=== PATIENT | male | born 1990 | race Caucasian/White ===

== ENCOUNTER 2021-08-28 14:32 | Inpatient (IN) | payer OTHER ==
[2021-08-28] MEDS ORDERED: ACETAMINOPHEN 325 MG TABLET (FP) PO PRN (15:26)
[2021-08-28] MEDS ORDERED: MAGNESIUM CITRATE 300 ML BOTTLE PO PRN (15:26)
[2021-08-28] MEDS ORDERED: MAGNESIUM HYDROX 2400MG/30ML ORAL SUSPENSION 30 ML CUP PO PRN (15:26)
[2021-08-28] MEDS ORDERED: LOPERAMIDE HCL 2 MG CAPSULE PO PRN (15:26)
[2021-08-28] MEDS ORDERED: MAG HYDROX/AL HYDROX/SIMETH 30 ML UNIT-DOSE CUP PO PRN (15:26)
[2021-08-28] MEDS ORDERED: NICOTINE 14 MG/24 HOURS TOPICAL PATCH TD SCH (15:26)
[2021-08-28] MEDS ORDERED: guaiFENesin 200 MG/10 ML 10 ML UNIT-DOSE CUPS PO PRN (15:26)
[2021-08-28] MEDS ORDERED: P-EPHED 60MG/TRIPROLIDI 2.5MG TABLET PO PRN (15:26)
[2021-08-28 15:45] VITALS: BMI 25.5
[2021-08-28] MEDS: hydrOXYzine PAMOATE 25 MG CAPSULE (FP) PO SCH (18:49)
[2021-08-28] MEDS: NICOTINE 21 MG/24 HOURS TOPICAL PATCH TD SCH (18:52)
[2021-08-28] MEDS ORDERED: DIVALPROEX SODIUM 500 MG TABLET E.C. ONE (21:30)
[2021-08-29] MEDS: THIAMINE HCL 100 MG TABLET (FP) PO SCH ×2 (00:26→21:49)
[2021-08-29] MEDS: DIVALPROEX SODIUM 500 MG TABLET E.C. PO SCH ×2 (00:26→21:49)
[2021-08-29] MEDS: hydrOXYzine PAMOATE 25 MG CAPSULE (FP) PO SCH ×3 (00:26→10:07)
[2021-08-29] MEDS: MELATONIN 5 MG TABLETS PO SCH ×2 (00:26→21:49)
[2021-08-29] MEDS ORDERED: methaDONE HCL 10 MG TABLET PO SCH (07:30)
[2021-08-29] MEDS ORDERED: methaDONE HCL 10 MG TABLET ONE (07:48)
[2021-08-29] MEDS ORDERED: methaDONE HCL 40 MG DISPERSABLE TABLET ONE (07:49)
[2021-08-29] MEDS ORDERED: PT OWN MED DRAWER 7, Y5N ONE ×2 (08:43→10:22)
[2021-08-29] MEDS ORDERED: ALBUTEROL SO4 HFA INHALER IH PRN (08:52)
[2021-08-29] MEDS ORDERED: methaDONE HCL 40 MG DISPERSABLE TABLET PO SCH (10:00)
[2021-08-29] MEDS: clonazePAM 0.5 MG ODT TABLETS SL SCH ×2 (10:06→21:48)
[2021-08-29] MEDS: PRENATAL VITAMINS W/ FOLIC ACID TABLET (FP) PO SCH (10:06)
[2021-08-29] MEDS: NICOTINE 21 MG/24 HOURS TOPICAL PATCH TD SCH (10:07)
[2021-08-29] MEDS: PATIENT'S OWN MEDICATION (NON-FORMULARY) (Clonazepam [Klonopin -] 0.5 MG Tablet) PO SCH ×3 (10:08→12:05)
[2021-08-29 11:41] LABS: HEMATOCRIT 40.3 % (35.4-49); HEMOGLOBIN 13.6 GM/dL (11.7-16.9); MCH 30.4 pg (25.7-33.7); MCHC 33.7 g/dl (32.0-35.9); MEAN PLT VOLUME 8.1 fl (7.5-11.1); PLATELET COUNT 306 10^3/uL (134-434); RBC 4.48 M/mm3 (4.00-5.60); RDW 13.4 % (11.9-15.9); WHITE BLOOD COUNT 8.5 K/mm3 (4.0-10.0)
[2021-08-29 11:46] LABS: CALCIUM 8.7 mg/dL (8.5-10.1)
[2021-08-29 11:47] LABS: ALBUMIN 3.2 g/dl (3.4-5.0); BLOOD UREA NITROGEN 6.1 mg/dL (7-18)
[2021-08-29 11:51] LABS: BILIRUBIN,TOTAL 0.9 mg/dL (0.2-1)
[2021-08-29 11:52] LABS: TOT PROT 6.4 g/dl (6.4-8.2)
[2021-08-29 11:54] LABS: CREATININE 0.7 mg/dL (0.55-1.3)
[2021-08-29 12:03] LABS: SYPHILIS W/ RPR CONF NON-REACTIVE (NONREACTIVE)
[2021-08-29] MEDS ORDERED: hydrOXYzine PAMOATE 25 MG CAPSULE (FP) PO PRN (12:04)
[2021-08-29 12:45] LABS: HIV INTERPRETATION NEGATIVE (NEGATIVE)
[2021-08-29] MEDS ORDERED: FLU VACC QS2021-22(6MOS UP)/PF 60 MCG/0.5 ML SYRINGE IM ONE (13:00)
[2021-08-29 15:07] LABS: EPI CELLS 1 /uL (0-25.1); HYALINE CASTS 0 /uL (0-3.1); PH,URINE 5.5 (5.0-8.0); URINE APPEARANCE CLEAR; URINE BACTERIA 7 /uL (0-1359); URINE BILIRUBIN NEGATIVE (NEGATIVE); URINE COLOR YELLOW; URINE GLUCOSE (UA) NEGATIVE (NEGATIVE); URINE KETONE TRACE (NEGATIVE); URINE LEUK ESTERASE TRACE (NEGATIVE); URINE NITRITE NEGATIVE (NEGATIVE); URINE PROTEIN NEGATIVE (NEGATIVE); URINE RBC 0 /uL (0-23.9); URINE WBC 6 /uL (0-25.8)
[2021-08-29] MEDS: IBUPROFEN 400 MG TABLET (FP) PO PRN (21:50)
[2021-08-30] MEDS ORDERED: methaDONE HCL 10 MG TABLET ONE (04:13)
[2021-08-30] MEDS ORDERED: methaDONE HCL 40 MG DISPERSABLE TABLET ONE (04:14)
[2021-08-30] MEDS ORDERED: PT OWN MED DRAWER 7, Y5N ONE (07:42)
[2021-08-30] MEDS: PRENATAL VITAMINS W/ FOLIC ACID TABLET (FP) PO SCH (09:25)
[2021-08-30] MEDS: NICOTINE 21 MG/24 HOURS TOPICAL PATCH TD SCH (09:25)
[2021-08-30] MEDS: clonazePAM 0.5 MG ODT TABLETS SL SCH ×2 (09:25→21:40)
[2021-08-30] MEDS: IBUPROFEN 400 MG TABLET (FP) PO PRN (09:26)
[2021-08-30] MEDS: NICOTINE POLACRILEX 2 MG GUM BUC PRN ×2 (09:29→21:47)
[2021-08-30] MEDS: THIAMINE HCL 100 MG TABLET (FP) PO SCH (21:40)
[2021-08-30] MEDS: MELATONIN 5 MG TABLETS PO SCH (21:40)
[2021-08-30] MEDS: DIVALPROEX SODIUM 500 MG TABLET E.C. PO SCH (21:40)
[2021-08-31] MEDS ORDERED: methaDONE HCL 10 MG TABLET ONE (03:31)
[2021-08-31] MEDS ORDERED: methaDONE HCL 40 MG DISPERSABLE TABLET ONE (03:31)
[2021-08-31] MEDS: clonazePAM 0.5 MG ODT TABLETS SL SCH ×2 (09:47→21:32)
[2021-08-31] MEDS: NICOTINE 21 MG/24 HOURS TOPICAL PATCH TD SCH (09:47)
[2021-08-31] MEDS: PRENATAL VITAMINS W/ FOLIC ACID TABLET (FP) PO SCH (09:48)
[2021-08-31] MEDS: NICOTINE POLACRILEX 2 MG GUM BUC PRN (09:48)
[2021-08-31] MEDS: MELATONIN 5 MG TABLETS PO SCH (21:32)
[2021-08-31] MEDS: THIAMINE HCL 100 MG TABLET (FP) PO SCH (21:32)
[2021-08-31] MEDS: DIVALPROEX SODIUM 500 MG TABLET E.C. PO SCH (21:32)
[2021-09-01] MEDS ORDERED: methaDONE HCL 40 MG DISPERSABLE TABLET ONE (03:56)
[2021-09-01] MEDS ORDERED: methaDONE HCL 10 MG TABLET ONE (03:56)
[2021-09-01] MEDS: PRENATAL VITAMINS W/ FOLIC ACID TABLET (FP) PO SCH (09:40)
[2021-09-01] MEDS: NICOTINE POLACRILEX 2 MG GUM BUC PRN (09:40)
[2021-09-01] MEDS: NICOTINE 21 MG/24 HOURS TOPICAL PATCH TD SCH (09:40)
[2021-09-01] MEDS: clonazePAM 0.5 MG ODT TABLETS SL SCH ×2 (09:40→21:05)
[2021-09-01] MEDS ORDERED: PT OWN MED DRAWER 7, Y5N ONE (09:48)
[2021-09-01] MEDS: DIVALPROEX SODIUM 500 MG TABLET E.C. PO SCH (21:05)
[2021-09-01] MEDS: THIAMINE HCL 100 MG TABLET (FP) PO SCH (21:05)
[2021-09-01] MEDS: MELATONIN 5 MG TABLETS PO SCH (21:05)
[2021-09-02] MEDS ORDERED: methaDONE HCL 10 MG TABLET ONE (03:54)
[2021-09-02] MEDS ORDERED: methaDONE HCL 40 MG DISPERSABLE TABLET ONE (03:54)
[2021-09-02] MEDS: NICOTINE 21 MG/24 HOURS TOPICAL PATCH TD SCH (09:34)
[2021-09-02] MEDS: clonazePAM 0.5 MG ODT TABLETS SL SCH ×2 (09:35→21:24)
[2021-09-02] MEDS: PRENATAL VITAMINS W/ FOLIC ACID TABLET (FP) PO SCH (09:35)
[2021-09-02] MEDS: NICOTINE 10 MG CARTRIDGE (INHALER) IH PRN ×2 (09:36→21:25)
[2021-09-02] MEDS ORDERED: PT OWN MED DRAWER 7, Y5N ONE ×2 (10:03→11:26)
[2021-09-02] MEDS: MELATONIN 5 MG TABLETS PO SCH (21:24)
[2021-09-02] MEDS: THIAMINE HCL 100 MG TABLET (FP) PO SCH (21:24)
[2021-09-02] MEDS: DIVALPROEX SODIUM 500 MG TABLET E.C. PO SCH (21:24)
[2021-09-03] MEDS ORDERED: methaDONE HCL 10 MG TABLET ONE (03:55)
[2021-09-03] MEDS ORDERED: methaDONE HCL 40 MG DISPERSABLE TABLET ONE (03:56)
[2021-09-03] MEDS: clonazePAM 0.5 MG ODT TABLETS SL SCH ×2 (09:39→21:24)
[2021-09-03] MEDS: NICOTINE 21 MG/24 HOURS TOPICAL PATCH TD SCH (09:40)
[2021-09-03] MEDS: PRENATAL VITAMINS W/ FOLIC ACID TABLET (FP) PO SCH (09:40)
[2021-09-03] MEDS: NICOTINE 10 MG CARTRIDGE (INHALER) IH PRN ×2 (09:40→21:25)
[2021-09-03] MEDS ORDERED: PT OWN MED DRAWER 7, Y5N ONE (10:10)
[2021-09-03] MEDS: THIAMINE HCL 100 MG TABLET (FP) PO SCH (21:24)
[2021-09-03] MEDS: MELATONIN 5 MG TABLETS PO SCH (21:24)
[2021-09-03] MEDS: DIVALPROEX SODIUM 500 MG TABLET E.C. PO SCH (21:25)
[2021-09-04] MEDS ORDERED: methaDONE HCL 10 MG TABLET ONE (03:19)
[2021-09-04] MEDS ORDERED: methaDONE HCL 40 MG DISPERSABLE TABLET ONE (03:19)
[2021-09-04] MEDS: NICOTINE 10 MG CARTRIDGE (INHALER) IH PRN (09:47)
[2021-09-04] MEDS: PRENATAL VITAMINS W/ FOLIC ACID TABLET (FP) PO SCH (09:47)
[2021-09-04] MEDS: clonazePAM 0.5 MG ODT TABLETS SL SCH ×2 (09:47→22:05)
[2021-09-04] MEDS: NICOTINE 21 MG/24 HOURS TOPICAL PATCH TD SCH (10:01)
[2021-09-04] MEDS ORDERED: OLANZapine 5 MG TABLET PO ONE (10:40)
[2021-09-04] MEDS ORDERED: OLANZapine 5 MG TABLET PO SCH (22:00)
[2021-09-04] MEDS: MELATONIN 5 MG TABLETS PO SCH (22:05)
[2021-09-04] MEDS: THIAMINE HCL 100 MG TABLET (FP) PO SCH (22:05)
[2021-09-04] MEDS: DIVALPROEX SODIUM 500 MG TABLET E.C. PO SCH (22:05)
[2021-09-04] MEDS: OLANZapine 5 MG TABLET PO SCH (22:07)
[2021-09-05] MEDS ORDERED: methaDONE HCL 40 MG DISPERSABLE TABLET ONE (09:01)
[2021-09-05] MEDS ORDERED: methaDONE HCL 10 MG TABLET ONE (09:01)
[2021-09-05] MEDS: OLANZapine 5 MG TABLET PO SCH ×2 (10:24→22:07)
[2021-09-05] MEDS: PRENATAL VITAMINS W/ FOLIC ACID TABLET (FP) PO SCH (10:24)
[2021-09-05] MEDS: NICOTINE 21 MG/24 HOURS TOPICAL PATCH TD SCH (10:25)
[2021-09-05] MEDS ORDERED: clonazePAM 0.5 MG ODT TABLETS SL PRN (10:51)
[2021-09-05] MEDS: clonazePAM 0.5 MG ODT TABLETS SL SCH ×2 (12:06→22:35)
[2021-09-05] MEDS: DIVALPROEX SODIUM 500 MG TABLET E.C. PO SCH (22:06)
[2021-09-05] MEDS: THIAMINE HCL 100 MG TABLET (FP) PO SCH (22:06)
[2021-09-05] MEDS: MELATONIN 5 MG TABLETS PO SCH (22:09)
[2021-09-06] MEDS ORDERED: methaDONE HCL 10 MG TABLET ONE ×2 (04:46→09:49)
[2021-09-06] MEDS ORDERED: methaDONE HCL 40 MG DISPERSABLE TABLET ONE ×2 (04:46→09:49)
[2021-09-06] MEDS: OLANZapine 5 MG TABLET PO SCH ×2 (09:52→21:43)
[2021-09-06] MEDS: NICOTINE 21 MG/24 HOURS TOPICAL PATCH TD SCH (09:52)
[2021-09-06] MEDS: PRENATAL VITAMINS W/ FOLIC ACID TABLET (FP) PO SCH (09:52)
[2021-09-06] MEDS ORDERED: PT OWN MED DRAWER 7, Y5N ONE ×2 (09:55→14:40)
[2021-09-06] MEDS: NICOTINE 10 MG CARTRIDGE (INHALER) IH PRN (10:18)
[2021-09-06] MEDS: clonazePAM 0.5 MG ODT TABLETS SL SCH ×2 (11:32→23:44)
[2021-09-06] MEDS: DIVALPROEX SODIUM 500 MG TABLET E.C. PO SCH (21:43)
[2021-09-06] MEDS: THIAMINE HCL 100 MG TABLET (FP) PO SCH (21:43)
[2021-09-06] MEDS: MELATONIN 5 MG TABLETS PO SCH (21:44)
[2021-09-07] MEDS ORDERED: methaDONE HCL 10 MG TABLET ONE (03:09)
[2021-09-07] MEDS ORDERED: methaDONE HCL 40 MG DISPERSABLE TABLET ONE (03:10)
[2021-09-07] MEDS: OLANZapine 5 MG TABLET PO SCH ×2 (09:41→21:06)
[2021-09-07] MEDS: PRENATAL VITAMINS W/ FOLIC ACID TABLET (FP) PO SCH (09:42)
[2021-09-07] MEDS: NICOTINE 21 MG/24 HOURS TOPICAL PATCH TD SCH (09:42)
[2021-09-07] MEDS: clonazePAM 0.5 MG ODT TABLETS SL SCH ×2 (11:33→22:52)
[2021-09-07] MEDS: NICOTINE 10 MG CARTRIDGE (INHALER) IH PRN (19:24)
[2021-09-07] MEDS: DIVALPROEX SODIUM 500 MG TABLET E.C. PO SCH (21:06)
[2021-09-07] MEDS: MELATONIN 5 MG TABLETS PO SCH (21:06)
[2021-09-07] MEDS: THIAMINE HCL 100 MG TABLET (FP) PO SCH (21:06)
[2021-09-08] MEDS ORDERED: methaDONE HCL 40 MG DISPERSABLE TABLET ONE (02:50)
[2021-09-08] MEDS ORDERED: methaDONE HCL 10 MG TABLET ONE (02:50)
[2021-09-08] MEDS: PRENATAL VITAMINS W/ FOLIC ACID TABLET (FP) PO SCH (10:38)
[2021-09-08] MEDS: NICOTINE 21 MG/24 HOURS TOPICAL PATCH TD SCH (10:38)
[2021-09-08] MEDS: OLANZapine 5 MG TABLET PO SCH ×2 (10:38→21:50)
[2021-09-08] MEDS: clonazePAM 0.5 MG ODT TABLETS SL SCH ×2 (12:17→23:40)
[2021-09-08] MEDS: NICOTINE 10 MG CARTRIDGE (INHALER) IH PRN ×2 (13:19→18:36)
[2021-09-08] MEDS ORDERED: PT OWN MED DRAWER 7, Y5N ONE (16:07)
[2021-09-08] MEDS: IBUPROFEN 400 MG TABLET (FP) PO PRN (18:35)
[2021-09-08] MEDS: DIVALPROEX SODIUM 500 MG TABLET E.C. PO SCH (21:50)
[2021-09-08] MEDS: MELATONIN 5 MG TABLETS PO SCH (21:50)
[2021-09-08] MEDS: THIAMINE HCL 100 MG TABLET (FP) PO SCH (21:50)
[2021-09-09] MEDS ORDERED: methaDONE HCL 10 MG TABLET ONE (09:09)
[2021-09-09] MEDS ORDERED: methaDONE HCL 40 MG DISPERSABLE TABLET ONE (09:10)
[2021-09-09] MEDS: PRENATAL VITAMINS W/ FOLIC ACID TABLET (FP) PO SCH (10:13)
[2021-09-09] MEDS: OLANZapine 5 MG TABLET PO SCH ×2 (10:13→21:09)
[2021-09-09] MEDS: NICOTINE 21 MG/24 HOURS TOPICAL PATCH TD SCH (10:16)
[2021-09-09] MEDS: clonazePAM 0.5 MG ODT TABLETS SL SCH ×2 (11:49→22:30)
[2021-09-09] MEDS: NICOTINE 10 MG CARTRIDGE (INHALER) IH PRN ×3 (12:16→21:10)
[2021-09-09] MEDS: DIVALPROEX SODIUM 500 MG TABLET E.C. PO SCH (21:09)
[2021-09-09] MEDS: THIAMINE HCL 100 MG TABLET (FP) PO SCH (21:09)
[2021-09-09] MEDS: MELATONIN 5 MG TABLETS PO SCH (21:09)
[2021-09-10] MEDS ORDERED: methaDONE HCL 10 MG TABLET ONE (08:36)
[2021-09-10] MEDS ORDERED: methaDONE HCL 40 MG DISPERSABLE TABLET ONE (08:37)
[2021-09-10] MEDS: OLANZapine 5 MG TABLET PO SCH ×2 (10:48→21:41)
[2021-09-10] MEDS: clonazePAM 0.5 MG ODT TABLETS SL SCH ×2 (10:48→23:03)
[2021-09-10] MEDS: PRENATAL VITAMINS W/ FOLIC ACID TABLET (FP) PO SCH (10:49)
[2021-09-10] MEDS: NICOTINE 21 MG/24 HOURS TOPICAL PATCH TD SCH (10:49)
[2021-09-10] MEDS: NICOTINE 10 MG CARTRIDGE (INHALER) IH PRN ×3 (10:55→21:42)
[2021-09-10] MEDS ORDERED: PT OWN MED DRAWER 7, Y5N ONE (13:17)
[2021-09-10] MEDS: DIVALPROEX SODIUM 500 MG TABLET E.C. PO SCH (21:41)
[2021-09-10] MEDS: MELATONIN 5 MG TABLETS PO SCH (21:41)
[2021-09-10] MEDS: THIAMINE HCL 100 MG TABLET (FP) PO SCH (21:41)
[2021-09-11 06:57] VITALS: BP 143/83; TEMP 98.2
[2021-09-11] MEDS ORDERED: methaDONE HCL 40 MG DISPERSABLE TABLET ONE (08:14)
[2021-09-11] MEDS ORDERED: methaDONE HCL 10 MG TABLET ONE (08:14)
[2021-09-11] MEDS: OLANZapine 5 MG TABLET PO SCH ×2 (09:32→21:42)
[2021-09-11] MEDS: NICOTINE 21 MG/24 HOURS TOPICAL PATCH TD SCH (09:33)
[2021-09-11] MEDS: NICOTINE 10 MG CARTRIDGE (INHALER) IH PRN ×2 (09:33→21:41)
[2021-09-11] MEDS: PRENATAL VITAMINS W/ FOLIC ACID TABLET (FP) PO SCH (09:33)
[2021-09-11] MEDS ORDERED: PT OWN MED DRAWER 7, Y5N ONE ×2 (09:59→14:47)
[2021-09-11] MEDS: clonazePAM 0.5 MG ODT TABLETS SL SCH ×2 (11:46→23:01)
[2021-09-11] MEDS: LIDOCAINE 5% TOPICAL PATCH TP SCH (11:46)
[2021-09-11] MEDS: DIVALPROEX SODIUM 500 MG TABLET E.C. PO SCH (21:42)
[2021-09-11] MEDS: THIAMINE HCL 100 MG TABLET (FP) PO SCH (21:42)
[2021-09-11] MEDS: LIDOCAINE PATCH REMOVAL MC SCH (21:42)
[2021-09-11] MEDS: MELATONIN 5 MG TABLETS PO SCH (21:43)
[2021-09-11 22:13] VITALS: PULSE 108
[2021-09-12] MEDS ORDERED: methaDONE HCL 10 MG TABLET ONE (08:15)
[2021-09-12] MEDS ORDERED: methaDONE HCL 40 MG DISPERSABLE TABLET ONE (08:16)
[2021-09-12] MEDS: OLANZapine 5 MG TABLET PO SCH ×2 (09:24→21:46)
[2021-09-12] MEDS: LIDOCAINE 5% TOPICAL PATCH TP SCH (09:25)
[2021-09-12] MEDS: PRENATAL VITAMINS W/ FOLIC ACID TABLET (FP) PO SCH (09:25)
[2021-09-12] MEDS: NICOTINE 21 MG/24 HOURS TOPICAL PATCH TD SCH (09:48)
[2021-09-12] MEDS ORDERED: PT OWN MED DRAWER 7, Y5N ONE ×4 (09:52→15:39)
[2021-09-12] MEDS: NICOTINE 10 MG CARTRIDGE (INHALER) IH PRN ×3 (12:29→21:47)
[2021-09-12] MEDS: DIVALPROEX SODIUM 500 MG TABLET E.C. PO SCH (21:46)
[2021-09-12] MEDS: MELATONIN 5 MG TABLETS PO SCH (21:46)
[2021-09-12] MEDS: THIAMINE HCL 100 MG TABLET (FP) PO SCH (21:46)
[2021-09-12] MEDS: LIDOCAINE PATCH REMOVAL MC SCH (21:47)
[2021-09-13] MEDS ORDERED: methaDONE HCL 10 MG TABLET ONE (09:06)
[2021-09-13] MEDS ORDERED: methaDONE HCL 40 MG DISPERSABLE TABLET ONE (09:07)
[2021-09-13] MEDS: OLANZapine 5 MG TABLET PO SCH ×2 (10:52→21:58)
[2021-09-13] MEDS: NICOTINE 21 MG/24 HOURS TOPICAL PATCH TD SCH (10:52)
[2021-09-13] MEDS: PRENATAL VITAMINS W/ FOLIC ACID TABLET (FP) PO SCH (10:52)
[2021-09-13] MEDS: LIDOCAINE 5% TOPICAL PATCH TP SCH (10:53)
[2021-09-13] MEDS: NICOTINE 10 MG CARTRIDGE (INHALER) IH PRN ×2 (10:54→17:45)
[2021-09-13] MEDS: MELATONIN 5 MG TABLETS PO SCH (21:58)
[2021-09-13] MEDS: THIAMINE HCL 100 MG TABLET (FP) PO SCH (21:58)
[2021-09-13] MEDS: DIVALPROEX SODIUM 500 MG TABLET E.C. PO SCH (21:58)
[2021-09-13] MEDS: LIDOCAINE PATCH REMOVAL MC SCH (21:58)
[2021-09-14] MEDS ORDERED: methaDONE HCL 10 MG TABLET ONE (09:51)
[2021-09-14] MEDS ORDERED: methaDONE HCL 40 MG DISPERSABLE TABLET ONE (09:51)
[2021-09-14] MEDS: OLANZapine 5 MG TABLET PO SCH ×2 (09:52→21:21)
[2021-09-14] MEDS: PRENATAL VITAMINS W/ FOLIC ACID TABLET (FP) PO SCH (09:52)
[2021-09-14] MEDS: NICOTINE 21 MG/24 HOURS TOPICAL PATCH TD SCH (09:54)
[2021-09-14] MEDS: LIDOCAINE 5% TOPICAL PATCH TP SCH (09:54)
[2021-09-14] MEDS: NICOTINE 10 MG CARTRIDGE (INHALER) IH PRN (10:04)
[2021-09-14] MEDS: IBUPROFEN 400 MG TABLET (FP) PO PRN (12:21)
[2021-09-14] MEDS: DIVALPROEX SODIUM 500 MG TABLET E.C. PO SCH (21:21)
[2021-09-14] MEDS: THIAMINE HCL 100 MG TABLET (FP) PO SCH (21:21)
[2021-09-14] MEDS: MELATONIN 5 MG TABLETS PO SCH (21:21)
[2021-09-14] MEDS: LIDOCAINE PATCH REMOVAL MC SCH (21:55)
== END 2021-09-15 08:25 | disposition home or self-care (01) | DRG 772 ==
LOC: YASAS 14:32 → Y3E 16:22
PROVIDERS: ADMIT Allergy & Immunology; ATTEND Allergy & Immunology
PROC: HZ42ZZZ Group Counseling for Substance Abuse Treatment, Cognitive-Behavioral (ICD-10-PCS; principal; 2021-08-28)
DX: F11.20 Opioid dependence, uncomplicated (principal); F14.20 Cocaine dependence, uncomplicated; F15.20 Other stimulant dependence, uncomplicated; F12.20 Cannabis dependence, uncomplicated; F17.210 Nicotine dependence, cigarettes, uncomplicated; F19.24 Other psychoactive substance dependence with psychoactive substance-induced mood disorder; F19.282 Other psychoactive substance dependence with psychoactive substance-induced sleep disorder; F31.9 Bipolar disorder, unspecified; F25.9 Schizoaffective disorder, unspecified; F60.0 Paranoid personality disorder; J45.909 Unspecified asthma, uncomplicated; B19.20 Unspecified viral hepatitis C without hepatic coma; M41.9 Scoliosis, unspecified; Z91.013 Allergy to seafood; Z62.810 Personal history of physical and sexual abuse in childhood
CPT/HCPCS: 36415; 80053; 80164; 81003; 85027; 86780; 86803; 87389; 87522; 87811; C9803; U0003; U0005

== ENCOUNTER 2022-04-08 16:31 | Inpatient (IN) | payer OTHER ==
[2022-04-08 17:32] VITALS: BMI 23.1
[2022-04-08] MEDS ORDERED: guaiFENesin 200 MG/10 ML 10 ML UNIT-DOSE CUPS PO PRN (18:34)
[2022-04-08] MEDS ORDERED: MAG HYDROX/AL HYDROX/SIMETH 30 ML UNIT-DOSE CUP PO PRN (18:34)
[2022-04-08] MEDS ORDERED: DICYCLOMINE HCL 10 MG CAPSULE PO PRN (18:34)
[2022-04-08] MEDS ORDERED: ACETAMINOPHEN 325 MG TABLET (FP) PO PRN ×2 (18:34)
[2022-04-08] MEDS ORDERED: ALBUTEROL SO4 HFA INHALER IH PRN (18:34)
[2022-04-08] MEDS ORDERED: IBUPROFEN 400 MG TABLET (FP) PO PRN (18:34)
[2022-04-08] MEDS ORDERED: P-EPHED 60MG/TRIPROLIDI 2.5MG TABLET PO PRN (18:34)
[2022-04-08] MEDS ORDERED: BENZOCAINE/MENTHOL (CHLORASEPTIC ) LOZENGE MM PRN (18:34)
[2022-04-08] MEDS ORDERED: ONDANSETRON *ODT* 4 MG TABLET SL PRN (18:34)
[2022-04-08] MEDS ORDERED: MAGNESIUM CITRATE 300 ML BOTTLE PO PRN (18:34)
[2022-04-08] MEDS ORDERED: MAGNESIUM HYDROX 2400MG/30ML ORAL SUSPENSION 30 ML CUP PO PRN (18:34)
[2022-04-08] MEDS ORDERED: LOPERAMIDE HCL 2 MG CAPSULE PO PRN (18:34)
[2022-04-08] MEDS ORDERED: diazePAM 5 MG TABLET PO PRN (18:34)
[2022-04-08] MEDS: diazePAM 5 MG TABLET PO SCH (22:34)
[2022-04-08] MEDS: THIAMINE HCL 100 MG TABLET (FP) PO SCH (22:34)
[2022-04-08] MEDS: METHOCARBAMOL 500 MG TABLET PO PRN (22:34)
[2022-04-08] MEDS: MELATONIN 5 MG TABLETS PO SCH (22:35)
[2022-04-08] MEDS: hydrOXYzine PAMOATE 25 MG CAPSULE (FP) PO PRN (22:36)
[2022-04-09] MEDS: diazePAM 5 MG TABLET PO SCH ×4 (05:21→22:29)
[2022-04-09] MEDS: hydrOXYzine PAMOATE 25 MG CAPSULE (FP) PO PRN (05:21)
[2022-04-09] MEDS: PRENATAL VITAMINS W/ FOLIC ACID TABLET (FP) PO SCH (10:46)
[2022-04-09] MEDS: methaDONE HCL 40 MG DISPERSABLE TABLET PO SCH (10:46)
[2022-04-09] MEDS: METHOCARBAMOL 500 MG TABLET PO PRN ×2 (10:48→22:31)
[2022-04-09 12:20] LABS: HEMATOCRIT 41.6 % (35.4-49); HEMOGLOBIN 13.9 GM/dL (11.7-16.9); MCH 29.8 pg (25.7-33.7); MCHC 33.4 g/dl (32.0-35.9); MEAN PLT VOLUME 8.4 fl (7.5-11.1); PLATELET COUNT 284 10^3/uL (134-434); RBC 4.67 M/mm3 (4.00-5.60); WHITE BLOOD COUNT 8.8 K/mm3 (4.0-10.0)
[2022-04-09 12:38] LABS: ALBUMIN 3.4 g/dl (3.4-5.0); CALCIUM 8.7 mg/dL (8.5-10.1)
[2022-04-09 12:39] LABS: BLOOD UREA NITROGEN 13.3 mg/dL (7-18)
[2022-04-09 12:42] LABS: CREATININE 0.6 mg/dL (0.55-1.3)
[2022-04-09 12:43] LABS: BILIRUBIN,TOTAL 0.3 mg/dL (0.2-1); TOT PROT 6.5 g/dl (6.4-8.2)
[2022-04-09] MEDS: NICOTINE 10 MG CARTRIDGE (INHALER) IH PRN (14:50)
[2022-04-09] MEDS: BISMUTH SUBSALICYLATE 524 MG/30 ML PO PRN ×2 (18:00→22:30)
[2022-04-09] MEDS: MELATONIN 5 MG TABLETS PO SCH (22:29)
[2022-04-09] MEDS: THIAMINE HCL 100 MG TABLET (FP) PO SCH (22:29)
[2022-04-10] MEDS: methaDONE HCL 40 MG DISPERSABLE TABLET PO SCH (05:43)
[2022-04-10] MEDS: diazePAM 5 MG TABLET PO SCH ×3 (05:44→22:40)
[2022-04-10] MEDS: NICOTINE 10 MG CARTRIDGE (INHALER) IH PRN ×3 (07:59→20:48)
[2022-04-10] MEDS: PRENATAL VITAMINS W/ FOLIC ACID TABLET (FP) PO SCH (10:21)
[2022-04-10] MEDS: hydrOXYzine PAMOATE 25 MG CAPSULE (FP) PO PRN ×2 (10:22→22:40)
[2022-04-10] MEDS: METHOCARBAMOL 500 MG TABLET PO PRN (10:22)
[2022-04-10] MEDS: THIAMINE HCL 100 MG TABLET (FP) PO SCH (22:40)
[2022-04-10] MEDS: MELATONIN 5 MG TABLETS PO SCH (22:40)
[2022-04-11] MEDS: methaDONE HCL 40 MG DISPERSABLE TABLET PO SCH (05:39)
[2022-04-11] MEDS: diazePAM 5 MG TABLET PO SCH ×2 (05:39→19:07)
[2022-04-11] MEDS: IBUPROFEN 600 MG TABLET (FP) PO PRN (07:48)
[2022-04-11] MEDS: METHOCARBAMOL 500 MG TABLET PO PRN ×2 (07:48→22:58)
[2022-04-11] MEDS: PRENATAL VITAMINS W/ FOLIC ACID TABLET (FP) PO SCH (10:28)
[2022-04-11] MEDS: MELATONIN 5 MG TABLETS PO SCH (22:58)
[2022-04-11] MEDS: THIAMINE HCL 100 MG TABLET (FP) PO SCH (22:58)
[2022-04-11] MEDS: NICOTINE 10 MG CARTRIDGE (INHALER) IH PRN (23:03)
[2022-04-12] MEDS: methaDONE HCL 40 MG DISPERSABLE TABLET PO SCH (05:19)
[2022-04-12] MEDS ORDERED: diazePAM 5 MG TABLET PO ONE (06:00)
[2022-04-12] MEDS: NICOTINE 10 MG CARTRIDGE (INHALER) IH PRN ×2 (07:01→12:17)
[2022-04-12] MEDS: hydrOXYzine PAMOATE 25 MG CAPSULE (FP) PO PRN (07:52)
[2022-04-12] MEDS: PRENATAL VITAMINS W/ FOLIC ACID TABLET (FP) PO SCH (10:36)
[2022-04-12] MEDS: MELATONIN 5 MG TABLETS PO SCH (22:38)
[2022-04-12] MEDS: THIAMINE HCL 100 MG TABLET (FP) PO SCH (22:38)
[2022-04-13] MEDS: methaDONE HCL 40 MG DISPERSABLE TABLET PO SCH (05:30)
[2022-04-13] MEDS: NICOTINE 10 MG CARTRIDGE (INHALER) IH PRN ×3 (05:42→11:45)
[2022-04-13 09:06] VITALS: BP 131/76; PULSE 82; TEMP 97.3
[2022-04-13] MEDS: PRENATAL VITAMINS W/ FOLIC ACID TABLET (FP) PO SCH (10:08)
[2022-04-13] MEDS: hydrOXYzine PAMOATE 25 MG CAPSULE (FP) PO PRN (10:08)
[2022-04-13] MEDS: IBUPROFEN 600 MG TABLET (FP) PO PRN (10:08)
[2022-04-13] MEDS: METHOCARBAMOL 500 MG TABLET PO PRN (10:08)
== END 2022-04-13 12:40 | disposition other institution (70) | DRG 773 ==
LOC: YASAS 16:31 → Y6N 19:31
PROVIDERS: ADMIT Allergy & Immunology; ATTEND Surgery
PROC: HZ2ZZZZ Detoxification Services for Substance Abuse Treatment (ICD-10-PCS; principal; 2022-04-08)
DX: F10.230 Alcohol dependence with withdrawal, uncomplicated (principal); F11.20 Opioid dependence, uncomplicated; F14.20 Cocaine dependence, uncomplicated; F15.20 Other stimulant dependence, uncomplicated; F12.20 Cannabis dependence, uncomplicated; F17.210 Nicotine dependence, cigarettes, uncomplicated; B19.20 Unspecified viral hepatitis C without hepatic coma; M51.24 Other intervertebral disc displacement, thoracic region; M41.9 Scoliosis, unspecified; M54.50 Low back pain, unspecified; G89.29 Other chronic pain; Z62.810 Personal history of physical and sexual abuse in childhood; Z91.410 Personal history of adult physical and sexual abuse; Z56.0 Unemployment, unspecified; Z59.00 Homelessness unspecified; Z88.8 Allergy status to other drugs, medicaments and biological substances
CPT/HCPCS: 36415; 80053; 85027; 86780; 87811; C9803-CS; U0003; U0005

== ENCOUNTER 2022-04-13 12:59 | Inpatient (IN) | payer OTHER ==
[2022-04-13] MEDS ORDERED: MAGNESIUM CITRATE 300 ML BOTTLE PO PRN (13:52)
[2022-04-13] MEDS ORDERED: ACETAMINOPHEN 325 MG TABLET (FP) PO PRN (13:52)
[2022-04-13] MEDS ORDERED: MAG HYDROX/AL HYDROX/SIMETH 30 ML UNIT-DOSE CUP PO PRN (13:52)
[2022-04-13] MEDS ORDERED: MAGNESIUM HYDROX 2400MG/30ML ORAL SUSPENSION 30 ML CUP PO PRN (13:52)
[2022-04-13] MEDS ORDERED: LOPERAMIDE HCL 2 MG CAPSULE PO PRN (13:52)
[2022-04-13] MEDS ORDERED: guaiFENesin 200 MG/10 ML 10 ML UNIT-DOSE CUPS PO PRN (13:52)
[2022-04-13] MEDS ORDERED: hydrOXYzine PAMOATE 25 MG CAPSULE (FP) PO PRN (13:52)
[2022-04-13] MEDS ORDERED: P-EPHED 60MG/TRIPROLIDI 2.5MG TABLET PO PRN (13:52)
[2022-04-13] MEDS ORDERED: ALBUTEROL SO4 HFA INHALER IH PRN (13:54)
[2022-04-13] MEDS: MELATONIN 5 MG TABLETS PO SCH (21:48)
[2022-04-13] MEDS: THIAMINE HCL 100 MG TABLET (FP) PO SCH (21:48)
[2022-04-14] MEDS: methaDONE HCL 40 MG DISPERSABLE TABLET PO SCH (06:39)
[2022-04-14] MEDS: NICOTINE 10 MG CARTRIDGE (INHALER) IH PRN ×4 (06:39→21:13)
[2022-04-14] MEDS: PRENATAL VITAMINS W/ FOLIC ACID TABLET (FP) PO SCH ×2 (10:14→10:41)
[2022-04-14 13:15] LABS: HIV INTERPRETATION NEGATIVE (NEGATIVE)
[2022-04-14] MEDS: THIAMINE HCL 100 MG TABLET (FP) PO SCH (21:12)
[2022-04-14] MEDS: MELATONIN 5 MG TABLETS PO SCH (21:12)
[2022-04-14] MEDS: IBUPROFEN 400 MG TABLET (FP) PO PRN (21:12)
[2022-04-15] MEDS: methaDONE HCL 40 MG DISPERSABLE TABLET PO SCH (06:11)
[2022-04-15] MEDS: NICOTINE 10 MG CARTRIDGE (INHALER) IH PRN ×4 (06:12→20:00)
[2022-04-15] MEDS: PRENATAL VITAMINS W/ FOLIC ACID TABLET (FP) PO SCH (09:36)
[2022-04-15] MEDS: THIAMINE HCL 100 MG TABLET (FP) PO SCH (21:16)
[2022-04-15] MEDS: MELATONIN 5 MG TABLETS PO SCH (21:16)
[2022-04-16] MEDS: methaDONE HCL 40 MG DISPERSABLE TABLET PO SCH (06:06)
[2022-04-16] MEDS: NICOTINE 10 MG CARTRIDGE (INHALER) IH PRN ×3 (08:12→15:42)
[2022-04-16] MEDS: PRENATAL VITAMINS W/ FOLIC ACID TABLET (FP) PO SCH (11:37)
[2022-04-16] MEDS: MELATONIN 5 MG TABLETS PO SCH (21:05)
[2022-04-16] MEDS: THIAMINE HCL 100 MG TABLET (FP) PO SCH (21:05)
[2022-04-17] MEDS: methaDONE HCL 40 MG DISPERSABLE TABLET PO SCH (06:47)
[2022-04-17] MEDS: NICOTINE 10 MG CARTRIDGE (INHALER) IH PRN (07:05)
[2022-04-17] MEDS: IBUPROFEN 400 MG TABLET (FP) PO PRN (09:56)
[2022-04-17] MEDS: PRENATAL VITAMINS W/ FOLIC ACID TABLET (FP) PO SCH (09:56)
[2022-04-17] MEDS: MELATONIN 5 MG TABLETS PO SCH (22:52)
[2022-04-17] MEDS: THIAMINE HCL 100 MG TABLET (FP) PO SCH (22:52)
[2022-04-18] MEDS: methaDONE HCL 40 MG DISPERSABLE TABLET PO SCH (06:32)
[2022-04-18] MEDS: NICOTINE 10 MG CARTRIDGE (INHALER) IH PRN (06:35)
[2022-04-18 07:15] VITALS: BP 138/94; PULSE 67; TEMP 96.5
[2022-04-18] MEDS: PRENATAL VITAMINS W/ FOLIC ACID TABLET (FP) PO SCH (10:22)
[2022-04-18] MEDS: IBUPROFEN 400 MG TABLET (FP) PO PRN (10:23)
[2022-04-18] MEDS ORDERED: GABAPENTIN 100 MG CAPSULE PO SCH (12:00)
[2022-04-18] MEDS ORDERED: ARIPiprazole 5 MG TABLET PO SCH (22:00)
== END 2022-04-18 18:30 | disposition left against medical advice (07) | DRG 772 ==
LOC: YASAS 12:59 → Y3W 13:00 → Y3E 13:10 → Y3W 17:46
PROVIDERS: ADMIT Allergy & Immunology; ATTEND Psychiatry & Neurology Pain Medicine
PROC: HZ42ZZZ Group Counseling for Substance Abuse Treatment, Cognitive-Behavioral (ICD-10-PCS; principal; 2022-04-13)
DX: F10.20 Alcohol dependence, uncomplicated (principal); F11.20 Opioid dependence, uncomplicated; F14.20 Cocaine dependence, uncomplicated; F12.20 Cannabis dependence, uncomplicated; F17.210 Nicotine dependence, cigarettes, uncomplicated; F25.9 Schizoaffective disorder, unspecified; J45.909 Unspecified asthma, uncomplicated; M51.24 Other intervertebral disc displacement, thoracic region; M18.2 Bilateral post-traumatic osteoarthritis of first carpometacarpal joints; Z56.0 Unemployment, unspecified; Z59.00 Homelessness unspecified; Z91.19 Patient's noncompliance with other medical treatment and regimen; Z88.8 Allergy status to other drugs, medicaments and biological substances; Z91.013 Allergy to seafood
CPT/HCPCS: 36415; 87389

== ENCOUNTER 2022-06-18 18:38 | Emergency (ER) | payer OTHER ==
[2022-06-18 18:47] VITALS: BP 140/70; PULSE 77; RESP 18; TEMP 98; BMI 20.7
[2022-06-18] MEDS ORDERED: diazePAM CARPU-JECT 10 MG/2 ML DISP.SYRIN IVPUSH ONE (19:20)
[2022-06-18] MEDS ORDERED: SODIUM CHLORIDE 1,000 ML IV STA (19:44)
[2022-06-18] MEDS ORDERED: ONDANSETRON 4 MG/2 ML VIAL IVPUSH ONE (19:44)
== END 2022-06-18 20:30 | disposition left against medical advice (07) ==
LOC: JER 18:38
DX: F19.10 Other psychoactive substance abuse, uncomplicated (principal); G40.89 Other seizures
CPT/HCPCS: 99281-25